=== PATIENT | male | born 1980 | race Two or more races ===

== ENCOUNTER 2024-10-08 07:54 | Emergency (ER) | payer OTHER ==
[~2024-10-08] VITALS: Ht 175.3 cm; Wt 81.6 kg
[2024-10-08] MEDS ORDERED: ONDANSETRON 4 MG/2 ML VIAL ONE (08:56)
[2024-10-08] MEDS ORDERED: HYDROMORPHONE 1 MG/1 ML DISP.SYRIN ONE (08:56)
[2024-10-08 09:03] LABS: BASOPHILS % (AUTO) 0.5 % (0.0-2.0); EOSINOPHILS # (AUTO) 0.2 K/uL (0.0-0.7); EOSINOPHILS % (AUTO) 3.2 % (0.0-7.0); HEMATOCRIT 37.3 % (36.7-47.1); HEMOGLOBIN 12.2 g/dL (12.5-16.3); LYMPHOCYTES # (AUTO) 1.5 K/uL (0.8-4.8); LYMPHOCYTES % (AUTO) 25.8 % (20.5-51.5); MEAN CORPUSCULAR HEMOGLOBIN 27.4 uug (23.8-33.4); MEAN CORPUSCULAR HGB CONC 33 g/dL (32.5-36.3); MEAN CORPUSCULAR VOLUME 83.5 fL (73.0-96.2); MONOCYTES # (AUTO) 0.9 K/uL (0.1-1.30); MONOCYTES % (AUTO) 15.1 % (0.0-11.0); NEUTROPHILS # (AUTO) 3.3 K/uL (1.8-8.9); NEUTROPHILS % (AUTO) 55.4 % (38.5-71.5); PLATELET COUNT (AUTO) 360 K/uL (152-348); RED BLOOD CELL COUNT(AUTO) 4.47 MIL/uL (4.06-5.63); RED CELL DISTRIBUTION WIDTH 14.8 % (12.1-16.2); WHITE BLOOD COUNT (AUTO) 5.9 K/uL (3.6-10.2)
[2024-10-08 09:07] LABS: DIFFERENTIAL COMMENT 1
[2024-10-08] MEDS: IV NS 1000 ML 1,000 ML IV ONE (09:10)
[2024-10-08] MEDS: ONDANSETRON 4 MG/2 ML VIAL IV ONE (09:10)
[2024-10-08] MEDS: HYDROMORPHONE 1 MG/1 ML DISP.SYRIN IV ONE (09:10)
[2024-10-08 09:22] LABS: IRON, SERUM 25 ug/dL (50-175)
[2024-10-08 09:25] LABS: ALBUMIN 2.7 g/dL (3.4-5.0); BILIRUBIN,DIRECT 0.1 mg/dL (0.0-0.2); BILIRUBIN,TOTAL 0.4 mg/dL (0.2-1.0); CALCIUM 8.6 mg/dL (8.5-10.1); CREATININE 1.1 mg/dL (0.6-1.3); POTASSIUM 3.5 mmol/L (3.5-5.1); TOTAL PROTEIN, SERUM 7.1 g/dL (6.4-8.2)
[2024-10-08 10:52] LABS: *BILIRUBIN,URIN NEGATIVE (NEGATIVE); *BLOOD, URINE 3+ (NEGATIVE); *CLARITY,URINE CLOUDY (CLEAR); *COLOR,URINE YELLOW (YELLOW); *KETONES,URINE TRACE (NEGATIVE); *PROTEIN,URINE 2+ (NEGATIVE); *UROBILINOGEN,URINE 0.2 E.U./dl (NORMAL); LEUKOCYTE ESTERASE ,URINE 3+ (NEGATIVE); NITRITE, URINE POSITIVE (NEGATIVE); UGLUCOSE NEGATIVE (NEGATIVE)
[2024-10-08 11:10] LABS: BACTERIA,URINE MANY /HPF (NONE SEEN); RBC,URINE 50-80 /HPF (0-3); URINE AMORPHOUS URATE FEW /HPF; WBC,URINE TNTC /HPF (0-3)
[2024-10-08] MEDS ORDERED: CEFTRIAXONE /D5W 50ML IVPB **ER PYXIS IV ONE (12:04)
[2024-10-08] MEDS: CEFTRIAXONE 1 G in IV DEXTROSE 5% 50 ML IV ONE (12:07)
[2024-10-08] MEDS ORDERED: GENTAMICIN SULFATE 80 MG/2 ML VIAL ONE (12:20)
[2024-10-08] MEDS: GENTAMICIN SULFATE 20 MG/2 ML VIAL IV ONE (12:37)
[2024-10-08 13:55] LABS: BAND % (MANUAL) 7 % (0-10); LYMPHOCYTES % (MANUAL) 30 % (20-40); NEUTROPHILS % (MANUAL) 44 % (42-75)
[2024-10-08 13:56] LABS: EOSINOPHILS % (MANUAL) 3 % (0-8); MONOCYTES % (MANUAL) 16 % (2-10); PLATELET ESTIMATE ADEQUATE
[2024-10-08] MEDS ORDERED: CEFD300C3 PO (14:26)
[2024-10-08 14:38] VITALS: BP 108/72; O2SAT 100
== END 2024-10-08 14:39 | disposition left against medical advice (07) ==
LOC: ER 07:54
DX: N13.6 Pyonephrosis (principal); D50.9 Iron deficiency anemia, unspecified; N32.1 Vesicointestinal fistula; R11.0 Nausea; G89.29 Other chronic pain; Z87.440 Personal history of urinary (tract) infections; Z87.442 Personal history of urinary calculi; Z93.3 Colostomy status
CPT/HCPCS: 99285; 74176; 96365; 96361; 96375; 96366; 80076; 80048; 81001; 83550; 85007; 85027; 85044; 87186; 87086; 87077; 36415; 96368; J0696; J1580; J2405; J1171; J7040; 70030-TC; 85025; A4606; A4663